=== PATIENT | female | born 1960 | race African-American/Black ===

== ENCOUNTER 2021-09-06 04:17 | Emergency (ER) | payer OTHER ==
[~2021-09-06] VITALS: Ht 152.4 cm; Wt 54.4 kg
--- NOTE | 2021-09-06 04:18 | NUR ---
Patient to ER chair [address] to gown for evaluation. Side rails up.
[2021-09-06 04:20] VITALS: BP_SYST 130
--- NOTE | 2021-09-06 04:29 | NUR ---
ER examining patient in the [facility]
[2021-09-06] MEDS ORDERED: chlordiazePOXIDE HCL 25 MG CAPSULE PO ONE (04:45)
[2021-09-06] MEDS ORDERED: LIB25 PO (04:58)
--- NOTE | 2021-09-06 05:07 | NUR ---
Patient given written and verbal discharge instructions and verbalizes understanding. ER MD discussed with patient the results and treatment provided. Patient in stable condition. ID arm band removed. Rx of librium given. Patient educated on pain management and to follow up with PMD. Pain Scale 0/10. Opportunity for questions provided and answered. Medication side effect fact sheet provided.
[2021-09-06 05:10] VITALS: BP_SYST 130
== END 2021-09-06 05:10 | disposition home or self-care (01) ==
LOC: SED 04:17
DX: Z02.89 Encounter for other administrative examinations (principal); F10.129 Alcohol abuse with intoxication, unspecified; Z79.899 Other long term (current) drug therapy; Y90.6 Blood alcohol level of 120-199 mg/100 ml
CPT/HCPCS: 82962; 99282